=== PATIENT | male | born 1975 | race Caucasian/White ===

== ENCOUNTER 2022-04-05 16:39 | Emergency (ER) | payer OTHER ==
[2022-04-05 17:04] LABS: #Basophils 0.1 thou/uL (0.0-0.2); #Eosinphils 0.1 thou/uL (0.0-0.7); #Lymphocytes 2.7 thou/uL (1.20-3.40); #Monocytes 0.8 thou/uL (0.11-0.59); %Basophils 0.7 % (0.0-1.0); %Lymphocytes 19.4 % (21.0-51.0); %Neutrophils 72.8 % (42.0-75.0); Hemoglobin 16.5 g/dL (14.0-18.0); Mean Corpuscular HGB CONC 33.4 g/dL (32.0-36.0); Mean Corpuscular Hemoglobin 31.9 pg (27.0-31.0); Mean Corpuscular Volume 95.6 fL (78.0-98.0); Mean Platelet Volume 7.1 fL (7.4-10.4); Platelet Count 219 thou/uL (130-400); RBC Distribution Width 11.5 % (11.5-14.5); Red Blood Cell (RBC) Count 5.17 mill/uL (4.70-6.10); White Blood Cell (WBC) Count 13.7 thou/uL (4.8-10.8)
[2022-04-05 17:12] LABS: INR-International Normal Ratio 1.1; PTT 26.4 sec (22.9-36.1); Prothrombin Time 14.6 sec (12.0-14.7)
[2022-04-05 17:32] LABS: Anion Gap 16 mmol/L (10-20); BUN (Urea Nitrogen) 12 mg/dL (8.9-20.6); Carbon Dioxide 23 mmol/L (22-29); Chloride 103 mmol/L (98-107); Potassium 3.9 mmol/L (3.5-5.1); Sodium 138 mmol/L (136-145)
[2022-04-05 17:33] LABS: ALT (SGPT) 23 U/L (8-55); AST (SGOT) 35 U/L (5-34); Albumin 4.4 g/dL (3.5-5.0); Alkaline Phosphatase 77 U/L (40-110); Bilirubin, Total 0.6 mg/dL (0.2-1.2); Calc. Creatinine Clearance 0 mL/min (70-130); Calcium 9.1 mg/dL (7.8-10.44); Globulin 3.5 g/dL (2.4-3.5); Glucose 110 mg/dL (70-105); Protein, Total 7.9 g/dL (6.0-8.3)
== END 2022-04-05 18:25 | disposition home or self-care (01) ==
LOC: ERS 16:39
DX: S06.0X9A Concussion with loss of consciousness of unspecified duration, initial encounter (principal); S20.213A Contusion of bilateral front wall of thorax, initial encounter; I10 Essential (primary) hypertension; Z87.891 Personal history of nicotine dependence; V89.2XXA Person injured in unspecified motor-vehicle accident, traffic, initial encounter
CPT/HCPCS: 70450; 71045; 71260; 72125; 74177; 80053; 85025; 85610; 85730; G0390

== ENCOUNTER 2025-10-11 08:26 | Outpatient (CLI) | payer OTHER | END 2025-10-11 08:27 | disposition home or self-care (01) | LOC: MRI 08:26 | PROVIDERS: ATTEND Student in an Organized Health Care Education/Training Program | DX: M67.814 Other specified disorders of tendon, left shoulder (principal); S43.432A Superior glenoid labrum lesion of left shoulder, initial encounter; S46.812A Strain of other muscles, fascia and tendons at shoulder and upper arm level, left arm, initial encounter; M19.012 Primary osteoarthritis, left shoulder ==